=== PATIENT | male | born 2000 | race Caucasian/White ===

== ENCOUNTER 2018-01-13 14:57 | Emergency (ER) | payer OTHER ==
[2018-01-13] MEDS ORDERED: NS 1,000 ML IV ONE (15:05)
--- NOTE | 2018-01-13 15:08 | EDPHY ---
H & P Time Seen by Provider: 01/13/18 15:05 HPI/ROS: CHIEF COMPLAINT: Ski accident HISTORY OF PRESENT ILLNESS: The patient is a 17-year-old man with a history of previous concussions who was skiing today and jumped doing several flips and landing on his face. He was unconscious for about half an hour afterwards until skip tracer got him to the bottom of the hill. He was A& O x2 for paramedics who brought him here emergently. He is now A&O x4 and has no complaints other than a mild headache. No neck pain. He is moving all extremities without difficulty and denies any torso pain. He denies any recent illness or drug or alcohol use. He denies any significant past medical history other than the concussions. REVIEW OF SYSTEMS: Constitutional: denies: chills, fever, recent illness, recent injury EENTM: denies: blurred vision, double vision, nose congestion Respiratory: denies: cough, shortness of breath Cardiac: denies: chest pain, irregular heart rate, lightheadedness, palpitations Gastrointestinal/Abdominal: denies: abdominal pain, diarrhea, nausea, vomiting, blood streaked stools Genitourinary: denies: dysuria, frequency, hematuria, pain Musculoskeletal: denies: joint pain, muscle pain Skin: denies: lesions, rash, jaundice, bruising Neurological: See HPI denies: numbness, paresthesia, tingling, dizziness, weakness Hematologic/Lymphatic: denies: blood clots, easy bleeding, easy bruising Immunologic/allergic: denies: HIV/AIDS, transplant Nursing assessment reviewed Vital signs reviewed normal Patient is alert not anxious or lethargic and in no distress c-collar in place, cervical collar cleared by me on arrival HEAD: Small abrasion to right forehead no raccoon eyes, no [place] sign. NECK: is nontender and has painless range of motion, trachea is midline, NEXUS criteria negative (no midline tenderness no distracting injury no altered mental status no recent alcohol and no focal neuro deficits EYES: pupils equal round reactive to light and accommodating, extraocular muscles are intact no palsy or entrapment, no subconjunctival hemorrhage ENT: Normal external inspection, airway intact, no dental or oral injuries, no clotted nasal blood, no septal hematoma, no hemotympanum CARDIOVASCULAR: heart sounds normal, not tachycardic or bradycardic, Chest is non-tender no rib tenderness no palpable fracture, no crepitus, no subcutaneous emphysema RESPIRATORY: no splinting, no paradoxical movements, gross sounds normal, no wheezes no rales no rhonchi, no respiratory distress ABDOMEN: Abdomen is nontender in all 4 quadrants no guarding no rebound, no distention, no hernias, no masses or bruits. GENITAL/RECTAL: Normal external inspection, no blood at urethral meatus, Stable pelvis NEUROLOGIC/PSYCH: Oriented x3, cranial nerves normal as assessed, face symmetrical, sensation normal, motor grossly normal, not perseverating, cranial nerves II through XII intact normal reflexes Limon Coma score: 15 SKIN: Intact, warm, dry, no ecchymosis, no lacerations, nondiaphoretic. BACK: No CVA tenderness, no vertebral point tenderness, no muscle spasm normal range of motion EXTREMITIES: Atraumatic, pelvis stable, nontender able to bear weight, no pulse deficit, normal range of motion, normal color and temperature Source: Patient Exam Limitations: No limitations - Medical/Surgical History Hx Asthma: No Hx Chronic Respiratory Disease: No Hx Diabetes: No Hx Cardiac Disease: No Hx Renal Disease: No Hx Cirrhosis: No Hx Alcoholism: No - Family History Significant Family History: No pertinent family hx - Social History Smoking Status: Never smoked Alcohol Use: Sober Constitutional: Initial Vital Signs Temperature (C) 36.8 C 01/13/18 15:09 Heart Rate 77 01/13/18 15:09 Respiratory Rate 14 01/13/18 15:09 Blood Pressure 138/70 H 01/13/18 15:09 O2 Sat (%) 98 01/13/18 15:09 O2 Delivery Mode Room Air Allergies/Adverse Reactions: No Known Allergies Allergy (Unverified 01/13/18 15:10) Medical Decision Making - Diagnostics Imaging: Discussed imaging studies w/ rn call center Radiologist ED Course/Re-evaluation: 4:[address] imaging is reassuring. The patient is feeling well. I discussed concussions and post concussion recovery with patient and mom. Friend is now here who saw the act states the patient was only unconscious for about 5 min. The patient is now asymptomatic. His headache is resolved. He is eager to go home. We discussed indications for returning. Differential Diagnosis: Partial list of the Differential diagnosis considered include but were not limited to; concussion, intracranial injury, fracture and although unlikely based on the history and physical exam, I also considered cervical spine injury , thoracic injury. I discussed these differential diagnoses and the plan with the patient as well as the usual and expected course. The patient understands that the diagnosis is provisional and that in medicine we are not always correct and that further workup is often warranted. Usual and customary warnings were given. All of the patient's questions were answered. The patient was instructed to return to the emergency department should the symptoms at all worsen or return, otherwise to followup with the physician as we discussed. - Data Points Medications Given: Discontinued Medications Sodium Chloride (Ns) 1,000 mls @ 0 mls/hr IV ONCE ONE; Wide Open PRN Reason: Protocol Stop: 01/13/18 15:06 Last Admin: 01/13/18 15:32 Dose: 1,000 mls Departure - Departure Disposition: Home, Routine, Self-Care Clinical Impression: Concussion Qualifiers: Encounter type: initial encounter Loss of consciousness presence/duration: with LOC of unspecified duration Qualified Code(s): S06.0X9A - Concussion with loss of consciousness of unspecified duration, initial encounter Condition: Good Instructions: Concussion (ED) Additional Instructions: If you are having persistent concussion symptoms follow up with Dr. Karimi at [facility]. Referrals: Patient,NotPresent [Unknown] - As per Instructions Jackeline Karimi MD [Medical Doctor] - As per Instructions
[2018-01-13 16:23] VITALS: BP 128/68
== END 2018-01-13 16:21 | disposition home or self-care (01) ==
LOC: EDUNIT#
DX: S06.0X9A Concussion with loss of consciousness of unspecified duration, initial encounter (principal); E86.9 Volume depletion, unspecified; V00.328A Other snow-ski accident, initial encounter; Y99.8 Other external cause status; Y93.23 Activity, snow (alpine) (downhill) skiing, snowboarding, sledding, tobogganing and snow tubing